=== PATIENT | male | born 1980 | race Caucasian/White ===

== ENCOUNTER 2016-12-23 21:23 | Emergency (ER) | payer OTHER ==
[2016-12-23 21:55] LABS: BASOPHILS # (AUTO) 0.1 10^3/uL (0.0-0.1); BASOPHILS % (AUTO) 0.7 %; EOSINOPHILS # (AUTO) 0.2 10^3/uL (0.0-0.7); EOSINOPHILS % (AUTO) 1.8 %; HCT - HEMATOCRIT 47.3 % (42.0-52.0); HGB - HEMOGLOBIN 16.4 g/dL (14.0-18.0); LYMPHOCYTES # (AUTO) 2.2 10^3/uL (1.5-3.5); LYMPHOCYTES % (AUTO) 17.3 %; MEAN CORPUSCULAR HEMOGLOBIN 31.3 pg (27.0-31.0); MEAN CORPUSCULAR HGB CONC 34.7 g/dL (32.0-36.0); MEAN CORPUSCULAR VOLUME 90.2 fL (80.0-94.0); MEAN PLATELET VOLUME 7.6 fL (7.4-11.4); MONOCYTES # (AUTO) 0.8 10^3/uL (0.0-1.0); MONOCYTES % (AUTO) 6.5 %; NEUTROPHILS # (AUTO) 9.2 10^3/uL (1.5-6.6); NEUTROPHILS % (AUTO) 73.7 %; RED BLOOD COUNT 5.25 10^6/uL (4.70-6.10); RED CELL DISTRIBUTION WIDTH 12.8 % (12.0-15.0); UNCORRECTED WHITE BLOOD COUNT 12.5 x10^3/uL; WHITE BLOOD COUNT 12.5 x10^3/uL (4.8-10.8)
[2016-12-23 22:03] LABS: ALBUMIN/GLOBULIN RATIO 1.1 (1.0-2.2); BILIRUBIN,TOTAL 0.5 mg/dL (0.2-1.0); CALCIUM 9.5 mg/dL (8.5-10.3); CREATININE 1.2 mg/dL (0.6-1.2); TOTAL PROTEIN 8.3 g/dL (6.7-8.2)
--- NOTE | 2016-12-23 22:19 | ED Physician Documentation ---
PD HPI ABD PAIN - Stated complaint Stated Complaint: ABD PAIN - Chief complaint Chief Complaint: Abd Pain - History obtained from History obtained from: Patient - History of Present Illness Timing - onset: Today (this morning) Timing - details: Gradual onset, Constant, Waxing and waning Pain level now: 8 Quality: Pain Location: LLQ, Other (testicles) Improved by: Other (no ameliorating factors) Worsened by: Other (no exacerbating factors) Associated symptoms: No: Fever, Nausea, Vomiting Similar symptoms before: Has not had sx before Recently seen: Not recently seen - Additional information Additional information: groin/testicular pain since this morning without injury, became worse around 2: 30 PM in abdomen, LLQ Review of Systems Constitutional: reports: Reviewed and negative GI: reports: Abdominal Pain. denies: Nausea, Vomiting : reports: Testicular pain (earlier today but nearly resoved at time of presentation). denies: Dysuria, Frequency PD PAST MEDICAL HISTORY - Past Medical History Past Medical History: Yes Cardiovascular: Hypertension Psych: ADD/ADHD - Past Surgical History Past Surgical History: Yes - Present Medications Home Medications: Ambulatory Orders Medication Instructions Recorded Confirmed Dextroamphetamine/Amphetamine 20 mg PO DAILY 12/23/16 12/23/16 [Adderall 20 mg Tablet] Lisinopril [Zestril] 20 mg PO DAILY 12/23/16 12/23/16 oxyCODONE/ACET 5/325 [Percocet 5 1 - 2 each PO Q6H PRN #20 tablet 12/24/16 mg/325 mg] - Allergies Allergies/Adverse Reactions: Allergies Allergy/AdvReac Type Severity Reaction Status Date / Time NSAIDS (Non-Steroidal Allergy Anaphylaxis Verified 12/23/16 21:30 Anti-Inflamma - Social History Does the pt smoke?: Yes Smoking Status: Current every day smoker Does the pt drink ETOH?: No Does the pt have substance abuse?: No - Immunizations Immunizations are current?: Yes PD ED PE NORMAL - Vitals Vital signs reviewed: Yes - General General: Alert and oriented X 3, No acute distress, Well developed/nourished - Cardiac Cardiac: RRR, No murmur - Respiratory Respiratory: No respiratory distress, Clear bilaterally - Abdomen Abdomen: Normal bowel sounds, Soft, Non distended PD ED PE EXPANDED - Abdomen Abdomen: Tender to palpation, LLQ. No: Rebound Results - Vitals Vitals: Oxygen O2 Source Room air - Labs Labs: Laboratory Tests 12/23/16 12/23/16 12/23/16 21:43 21:43 22:15 WBC 12.5 H RBC 5.25 Hgb 16.4 Hct 47.3 MCV 90.2 MCH 31.3 H MCHC 34.7 RDW 12.8 Plt Count 235 MPV 7.6 Neut # 9.2 H Lymph # 2.2 [place] # 0.8 Eos # 0.2 Baso # 0.1 Absolute Nucleated RBC 0.00 Nucleated RBC % 0.0 Sodium 134 L Potassium 4.0 Chloride 100 L Carbon Dioxide 23 Anion Gap 11.0 BUN 19 Creatinine 1.2 Estimated GFR (MDRD) 69 L Glucose 110 H Calcium 9.5 Total Bilirubin 0.5 AST 26 ALT 43 Alkaline Phosphatase 75 Total Protein 8.3 H Albumin 4.3 Globulin 4.0 Albumin/Globulin Ratio 1.1 Lipase 31 Urine Color YELLOW Urine Clarity CLEAR Urine pH 6.0 Ur Specific [place] 1.020 Urine Protein NEGATIVE Urine Glucose (UA) NEGATIVE Urine Ketones NEGATIVE Urine Occult Blood NEGATIVE Urine Nitrite NEGATIVE Urine Bilirubin NEGATIVE Urine Urobilinogen 0.2 (NORMAL) Ur Leukocyte Esterase NEGATIVE Ur Microscopic Review NOT INDICATED Urine Culture Comments NOT INDICATED - Rads (name of study) CT A/P Radiology: Prelim report reviewed, See rad report PD MEDICAL DECISION MAKING - ED course Complexity details: reviewed results, re-evaluated patient, considered differential, d/w patient Departure - Departure Disposition: 01 Home, Self Care Clinical Impression: Epiploic appendagitis Condition: Good Instructions: ED Abdominal Pain Unkn Cause Male Follow-Up: [facility] [Provider Group] Prescriptions: oxyCODONE/ACET 5/325 [Percocet 5 mg/325 mg] 1 - 2 each PO Q6H PRN #20 tablet PRN Reason: Pain Comments: The CT scan of your abdomen suggests the diagnosis of epiploic appendagitis. Unfortunately, I do not have discharge instructions that review this diagnosis ( and thus you have been given general abdominal pain instructions that indicate no specific cause). As we discussed, epiploic appendagitis is painful but benign , and should resolve within one week. Please follow up with your doctor for reevaluation this coming week. Discharge Date/Time: 12/24/16 03:02
[2016-12-23 22:27] LABS: BILIRUBIN,URINE NEGATIVE (NEGATIVE)
[2016-12-23 22:31] LABS: UA CHARGE (STRIP ONLY) YES; UR CULTURE IF IND NOT INDICATED
[2016-12-23] MEDS ORDERED: IOPAMIDOL-300 100 ML VIAL ONE (23:10)
[2016-12-23] MEDS ORDERED: HYDROmorphone 1 MG/ML CARPUJECT IVP STA (23:11)
[2016-12-23] MEDS ORDERED: HYDROmorphone 1 MG/ML SYRINGE ONE (23:15)
[2016-12-24] MEDS ORDERED: IOPAMIDOL-300 100 ML VIAL IVP ONE (00:03)
--- NOTE | 2016-12-24 00:25 | CT Preliminary Report ---
Exam: CT Abdomen/Pelvis W/ IMPRESSION: 1. Distal descending colon epiploic appendagitis. 2. Couple of tiny nonobstructing left renal stones. [facility] SITE ID: [id number]
--- NOTE | 2016-12-24 00:38 | CT Report ---
EXAM: CT ABDOMEN AND PELVIS EXAM DATE: 12/24/2016 12:14 AM. CLINICAL HISTORY: Left lower quadrant abdominal pain. COMPARISONS: None. TECHNIQUE: Routine helical CT imaging was performed through the abdomen and pelvis. IV contrast: 100 mL Isovue 300. Enteric contrast: No . Reconstructions: Coronal and sagittal. In accordance with CT protocol optimization, one or more of the following dose reduction techniques w ere utilized for this exam: automated exposure control, adjustment of mA and/or KV based on patient s ize, or use of iterative reconstructive technique. FINDINGS: Lung Bases: Unremarkable. Liver: Unremarkable. No suspicious masses. Gallbladder/Bile Ducts: Unremarkable. Spleen: Unremarkable. Pancreas: Unremarkable. Adrenal Glands: Unremarkable. Kidneys: A couple of tiny nonobstructing left renal stones. No suspicious masses or hydronephrosis. Peritoneal Cavity/Bowel: Inflammatory fat stranding anterior to the distal descending colon in a karolina reynaldo consistent with epiploic appendagitis. No bowel obstruction or other inflammatory process seen. N o free air or significant free fluid. No masses or adenopathy. The appendix is normal. No excessive s tool burden. Pelvic Organs: Bladder and prostate appear unremarkable. Vasculature: No aneurysms or other significant abnormality. Bones: No significant abnormality with incidental note of partial fusion of T10-T11. Other: None. IMPRESSION: 1. Distal descending colon epiploic appendagitis. 2. A couple of tiny nonobstructing left renal stones. [facility] Referring Provider Line: [phone] SITE ID: [id number]
[2016-12-24] MEDS ORDERED: HYDROmorphone 1 MG/ML CARPUJECT IVP STA (02:36)
[2016-12-24] MEDS ORDERED: oxyCODONE/ACET 5/325 Prepack 4 PO STA (02:36)
[2016-12-24] MEDS ORDERED: HYDROmorphone 1 MG/ML SYRINGE ONE (02:47)
[2016-12-24] MEDS ORDERED: oxyCODONE/ACET 5/325 Prepack 4 PO ONE (02:47)
[2016-12-24 03:03] VITALS: BP 118/74
== END 2016-12-24 03:02 | disposition home or self-care (01) ==
LOC: ED 21:23
DX: K63.89 Other specified diseases of intestine (principal); I10 Essential (primary) hypertension; F17.200 Nicotine dependence, unspecified, uncomplicated
CPT/HCPCS: 36415; 74177; 80053; 81003; 83690; 85025; 96374; 96376; 99283; 99284; J1170; Q9967; 81001; 87086

== ENCOUNTER 2017-02-05 22:14 | Emergency (ER) | payer OTHER ==
[2017-02-05] MEDS ORDERED: oxyCODONE/ACET 5/325 Prepack 4 PO STA (22:33)
[2017-02-05] MEDS ORDERED: cefTRIAXone 1 GM VIAL IM STA (22:33)
[2017-02-05] MEDS ORDERED: HYDROmorphone 1 MG/ML SYRINGE IM STA (22:33)
[2017-02-05] MEDS ORDERED: NEOMYCIN/POLYMYX/HC OTIC DROPS LEFTEAR STA (22:33)
--- NOTE | 2017-02-05 22:34 | ED Physician Documentation ---
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 He developed ear pain about 4 days ago[place]. He got worse over the weekend and was seen again yesterday now with pain radiating down the jaw and mild facial swelling and chills. He was started on oral ciprofloxacin and tramadol which have not helped the pain and the swelling has continued to worsen.) Review of Systems Constitutional: reports: Fever, Chills Ears: reports: Loss of hearing, Ear pain, Drainage/discharge Nose: denies: Rhinorrhea / runny nose, Congestion Throat: reports: Reviewed and negative PD PAST MEDICAL HISTORY - Past Medical History Cardiovascular: Hypertension Psych: ADD/ADHD - Past Surgical History Past Surgical History: Yes - Present Medications Home Medications: Ambulatory Orders Medication Instructions Recorded Confirmed Dextroamphetamine/Amphetamine 20 mg PO DAILY 12/23/16 02/05/17 [Adderall 20 mg Tablet] Lisinopril [Zestril] 20 mg PO DAILY 12/23/16 02/05/17 Amox/Clav 875/125 [Augmentin 1 tab PO 02/05/17 875/125] Ciprofloxacin HCl [Cipro] 1 tab PO 02/05/17 Oxycodone HCl/Acetaminophen 1 - 2 tab PO Q4H PRN #15 tablet 02/05/17 [Percocet 5-325 mg Tablet] Tramadol HCl 1 tab PO Q6HR PRN 02/05/17 02/05/17 - Allergies Allergies/Adverse Reactions: Allergies Allergy/AdvReac Type Severity Reaction Status Date / Time NSAIDS (Non-Steroidal Allergy Anaphylaxis Verified 02/05/17 22:18 Anti-Inflamma - Social History Does the pt smoke?: Yes Smoking Status: Current every day smoker Does the pt drink ETOH?: No Does the pt have substance abuse?: No - Immunizations Immunizations are current?: Yes - POLST Patient has POLST: No PD ED PE NORMAL - Vitals Vital signs reviewed: Yes - General General: Alert and oriented X 3, No acute distress - HEENT HEENT: Other (He has very mild left-sided facial cellulitis, the left canal is swollen shots, a Paulson ear wick was placed during examination, he has severe otitis externa. He has a large but noninflamed tonsils. No cervical adenopathy.) - Neck Neck: Supple, no meningeal sign, No bony TTP - Neuro Neuro: Alert and oriented X 3, Normal speech - Psych Psych: Normal mood, Normal affect Results - Vitals Vitals: Vital Signs - 24 hr 02/05/17 22:18 Temperature 36.2 C L Heart Rate 99 Respiratory 18 Rate Blood Pressure 150/103 H O2 Saturation 96 Oxygen O2 Source Room air PD MEDICAL DECISION MAKING - ED course ED course: 37-year-old gentleman with otitis externa and now reactive facial cellulitis. He is probably not getting much relief from his eardrops because his canal is completely swollen shut. To remedy this an ear wick was placed during examination. He was also administered a gram of Rocephin here and Percocet prepack to go as well as milligram of Dilaudid IM here. Departure - Departure Disposition: 01 Home, Self Care Clinical Impression: Acute otitis externa, Facial cellulitis Condition: Good Record reviewed to determine appropriate education?: Yes Instructions: ED Cellulitis Facial Prescriptions: Oxycodone HCl/Acetaminophen [Percocet 5-325 mg Tablet] 1 - 2 tab PO Q4H PRN #15 tablet PRN Reason: Pain Comments: Continue the oral antibiotics and eardrops which you have been prescribed. Add on the stronger pain medication. Return tomorrow or the next day if not improving, anytime if worse. Your blood pressure was elevated today on check into the emergency department. This does not mean that you have hypertension, it is a common phenomenon to come to the emergency department and have elevated blood pressure. I recommend that you see your primary care physician within the week to have it rechecked when you are feeling better. Do not drink or drive while taking narcotic pain medication. Note that many narcotic pain relievers also contain Tylenol/acetaminophen. Please ensure that your total dose of acetaminophen from all sources does not exceed 3 g (3000 mg) per day. You may get constipated while on this medication. Take a stool softener such as Colace twice a day while you are on it. Also add an [id number] laxative such as senna or MiraLAX on any day that you do not have a bowel movement. If you received a narcotic pain medication or sedative while in the emergency department, do not drive for the next 24 hours.
[2017-02-05] MEDS ORDERED: HYDROmorphone 1 MG/ML SYRINGE ONE (22:42)
[2017-02-05] MEDS ORDERED: oxyCODONE/ACET 5/325 Prepack 4 PO ONE (22:43)
[2017-02-05] MEDS ORDERED: LIDOCAINE 1% 2 ML VIAL ONE (22:43)
[2017-02-05] MEDS ORDERED: NEOMYCIN/POLYMYX/HC OTIC DROPS ONE (22:43)
[2017-02-05] MEDS ORDERED: cefTRIAXone 1 GM VIAL ONE (22:43)
[2017-02-05 23:06] VITALS: BP 140/90
== END 2017-02-05 23:13 | disposition home or self-care (01) ==
LOC: ED 22:14
DX: H60.502 Unspecified acute noninfective otitis externa, left ear (principal); L03.211 Cellulitis of face; I10 Essential (primary) hypertension; F17.200 Nicotine dependence, unspecified, uncomplicated
CPT/HCPCS: 96372; 99283; A9270; J1170

== ENCOUNTER 2017-07-06 16:58 | Emergency (ER) | payer OTHER ==
[2017-07-06 17:08] VITALS: BP 140/86
--- NOTE | 2017-07-06 17:30 | ED Physician Documentation ---
PD HPI UPPER EXT INJURY - Stated complaint Stated Complaint: FINGER LAC - Chief complaint Chief Complaint: Laceration - History obtained from History obtained from: Patient, Family - History of Present Illness Location: Left, Finger (index) Type of injury: Laceration Where injury occurred: Home Timing - onset: Today Timing - duration: Minutes Timing - details: Abrupt onset, Still present Improved by: Rest, Immobilization Worsened by: Moving, Palpating Associated symptoms: No: Weakness, Numbness, Tingling Contributing factors: No: Anticoagulated Similar symptoms before: Diagnosis (laceration) Recently seen: Not recently seen - Additonal information Additional information: 37-year-old male was cutting cheese with a sharp knife and lacerated his left index finger over the proximal interphalangeal joint with a skip of skin. It is over the radial surface. Distal neurovascular components are intact. Review of Systems Constitutional: denies: Fever Respiratory: denies: Cough GI: denies: Vomiting Skin: reports: Laceration (s) Musculoskeletal: reports: Extremity pain. denies: Neck pain, Back pain PD PAST MEDICAL HISTORY - Past Medical History Past Medical History: Yes Cardiovascular: Hypertension Psych: ADD/ADHD - Past Surgical History Past Surgical History: Yes - Present Medications Home Medications: Ambulatory Orders Medication Instructions Recorded Confirmed Dextroamphetamine/Amphetamine 20 mg PO DAILY 12/23/16 02/05/17 [Adderall 20 mg Tablet] Lisinopril [Zestril] 20 mg PO DAILY 12/23/16 02/05/17 - Allergies Allergies/Adverse Reactions: Allergies Allergy/AdvReac Type Severity Reaction Status Date / Time NSAIDS (Non-Steroidal Allergy Anaphylaxis Verified 07/06/17 17:08 Anti-Inflamma - Social History Does the pt smoke?: Yes Smoking Status: Current every day smoker Does the pt drink ETOH?: No Does the pt have substance abuse?: No - Immunizations Immunizations are current?: Yes - POLST Patient has POLST: No PD ED PE NORMAL - Vitals Vital signs reviewed: Yes (hypertensive ) - General General: Alert and oriented X 3, No acute distress, Well developed/nourished - HEENT HEENT: Atraumatic, PERRL, EOMI - Neck Neck: Supple, no meningeal sign - Respiratory Respiratory: No respiratory distress Results - Vitals Vitals: Vital Signs - 24 hr 07/06/17 17:07 Temperature 36.6 C Heart Rate 85 Respiratory 16 Rate Blood Pressure 140/86 H O2 Saturation 97 Oxygen O2 Source Room air PD MEDICAL DECISION MAKING - ED course Complexity details: considered differential, d/w patient, d/w family ED course: skin is avulsed and this is treated conservatively. Departure - Departure Disposition: 01 Home, Self Care Clinical Impression: Skin avulsion Condition: Stable Instructions: ED Avulsion Dermal Follow-Up: [facility] [Provider Group] Discharge Date/Time: 07/06/17 17:49
== END 2017-07-06 17:49 | disposition home or self-care (01) ==
LOC: ED 16:58
DX: S61.201A Unspecified open wound of left index finger without damage to nail, initial encounter (principal); W26.0XXA Contact with knife, initial encounter; Y92.009 Unspecified place in unspecified non-institutional (private) residence as the place of occurrence of the external cause; I10 Essential (primary) hypertension; F17.200 Nicotine dependence, unspecified, uncomplicated
CPT/HCPCS: 99282; 99283

== ENCOUNTER 2022-10-10 13:02 | Outpatient (CLI) | payer OTHER ==
--- NOTE | 2022-10-10 13:40 | Sleep Patient Instructions ---
Sleep Center Visit Summary - Patient Visit Information Reason for Visit: Initial consult for evaluation of sleep disordered breathing and other sleep issues. - Patient Instructions Instructions Attached: Sleep Study, Sleep Clinic Visit, Sleep Study Home Monitor Additional Instructions: You will be completing a sleep study, either an in-lab polysomnography (PSG) or home sleep study (HST). You will follow-up in the sleep care office after the sleep study is completed to hear the results and talk about therapy, if needed. You will be called by our office staff to schedule this appointment, but you may contact us with any questions. - Clinic Information Contact: [facility] [address] [place] [address] [email or web address] T: [phone]
--- NOTE | 2022-10-10 13:46 | SLEEP CARE CONSULTATION ---
Information from patient questionnaire entered by Margarita Kaplan. I have reviewed and concur with the information entered by Margarita Kaplan. This document represents the service I personally performed and the decisions made by me, Sruthi Brown ARNP. History of Present Illness Service Date and Time: 10/10/2022 1302 Reason for Visit: New patient Chief Complaint: reports: Snoring, Excessive daytime sleepiness, Observed pauses in breathing Date of Onset: COUPLE YRS Usual bedtime: 2200 Time it takes to fall asleep: 20MIN Snores at night: Yes Observed to quit breathing while asleep: Yes Number of times waking at night: 3-5 Reasons for waking at night: reports: Snoring, Pain (neck/shoulder pain), Other (UNKNOWN, TOSSING AND TURNING). denies: Choking, Gasping for air Toss, Turn, or Twitch while sleeping: Yes Recalls having dreams: Yes Usually gets out of bed at: 0500 Feels refreshed in the morning: No Morning headache: No Sleepy or fatigued during the day: Yes Ever fallen asleep while driving: No Takes day naps: No Dreams during day naps: No Prior sleep studies: No Additional HPI information: I had the pleasure of seeing PRISCILLA FAULKNER today regarding the possibility of him having a sleep disorder. His current complaints are snoring, excessive daytime sleepiness and observed pauses in breathing. He states he comes in because his has encouraged him to have his snoring checked out. His snoring has been getting worse and he is stopping breathing which "scares" his . He states he is also becoming progressively more tired during the day. He does not wake up feeling refreshed in the morning. He does have hypertension which he states has been hard to control with medications. - Parasomnia Symptoms Ever been unable to move upon waking from sleep: No Walks in sleep: No Talks in sleep: Yes (having conversations sometimes) Ever acted out dreams in sleep: Yes (moving hands in sleep) Ever felt weak in the knees when startled or emotional: No Bothered by creepy, crawly, restless sensations in legs: No Problems with memory or concentration: Yes (concentration problem, on ADHD medications for this) Subjective Initial [place] Sleepiness Scale score: 15 (10/09/22) Past Medical History Past Medical History: reports: Hypertension, Attention deficit Social History The patient's occupation is a [employer]. Patient is and lives in . Have you smoked in the past 12 months: No Years of smokin Quit date: 2013 Alcohol use: Yes Alcohol amount and frequency: 2 DRINKS RARELY Caffeine use: Yes Caffeine amount and frequency: 2 CUPS EVERYDAY Family History Family history of sleep disordered breathing: Yes Family Hx Sleep Apnea: Mother: Snoring, Father: Snoring, Sibling: Snoring Allergies and Home Medications Known drug allergies: Yes (NASAIDS) Drug allergies reviewed: Yes Home medication list reviewed: Yes (Adderall and Lisinopril) Allergy and home medication list: Allergies NSAIDS (Non-Steroidal Anti-Inflamma Allergy (Verified 10/09/22 13:48) Anaphylaxis Review of Systems Weight gain over past 5 years: 20 Cardiovascular: reports: high blood pressure Respiratory: reports: shortness of breath Gastrointestinal: reports: diarrhea. denies: heartburn Neurological: denies: headaches Psychiatric: reports: Attention Deficit Hyperactivity. denies: anxiety, depression Ear/Nose/Throat: reports: wisdom teeth removed. denies: tonsillectomy Musculoskeletal: reports: joint pain, neck pain, other (SHOULDER PAIN) Physical Exam Vital signs obtained and entered by: MARGARITA Siddiqi MA Blood Pressure: 128/78 (LEFT ARM) Cuff size: regular Heart Rate: 91 O2 Saturation: 96 Height: 5 ft 10.5 in Weight: 239 lb 9.6 oz Body Mass Index: 33.9 BMI Classification: Obese Neck circumference: 19 Mouth and throat: narrow oropharynx Soft palate: long Hard palate: normal Uvula: normal Uvula visualization: 25% Mallampati Class III Tongue: normal in size Tonsils: 2+ Neck: normal w/o lymphadenopathy or thyromegaly Heart: regular rate and rhythm Lungs: clear bilaterally Impression and Plan 1. Suspected Obstructive Sleep Apnea-Hypopnea Syndrome, as suggested by a history of loud and irregular snoring, observed cessation of breath while asleep, frequent awakening during the night, unrefreshed sleep, cognitive impairment, and excessive daytime sleepiness. Narrow oropharynx and obesity are common predisposing factors for obstructive sleep apnea-hypopnea syndrome. I recommend proceeding to polysomnography to confirm the diagnosis and to assess severity. If the patient has significant sleep disordered breathing, a manual CPAP titration study will also be performed to find the optimal treatment pressure. I informed the patient of what the sleep studies involve and after some discussion, obtained agreement to proceed. The pathophysiology of obstructive sleep apnea-hypopnea syndrome was discussed with the patient and health risks of cardiovascular and cerebrovascular disease if not treated. Risks of drowsy driving discussed in detail and patient advised to avoid long distance driving and to pin puller at the first sign of drowsiness. Patient agreed to plan. * Schedule polysomnography * Avoid long distance driving or driving when feeling sleepy. * Avoid alcohol, sedative and muscle relaxant around bedtime. * Attempt to lose weight. * Review instructions provided by trained office staff on how to prepare for the sleep study. * Return for follow-up after sleep study completed. Counseling Topics: Weight loss health impact Visit Type: In Office Time Spent with Patient (minutes): 30 Provider Statement: I spent 100% of the Face to Face Visit with the patient with greater than 50% spent counseling the patient and coordination of care.
[2022-10-10 14:07] VITALS: BP 128/78
== END 2022-10-10 13:03 | disposition home or self-care (01) ==
LOC: SC 13:02
PROVIDERS: ATTEND Nurse Practitioner Family
DX: R06.83 Snoring (principal); G47.10 Hypersomnia, unspecified; R06.81 Apnea, not elsewhere classified; G47.8 Other sleep disorders; R41.89 Other symptoms and signs involving cognitive functions and awareness; E66.9 Obesity, unspecified; Z68.33 Body mass index [BMI] 33.0-33.9, adult; Z87.891 Personal history of nicotine dependence
CPT/HCPCS: 99203; 99212

== ENCOUNTER 2022-11-13 20:34 | Outpatient (CLI) | payer OTHER | END 2022-11-13 20:35 | disposition home or self-care (01) | LOC: SC 20:34 | PROVIDERS: ATTEND Nurse Practitioner Family | DX: G47.33 Obstructive sleep apnea (adult) (pediatric) (principal); G47.61 Periodic limb movement disorder; Z68.33 Body mass index [BMI] 33.0-33.9, adult | CPT/HCPCS: 95806; 95810 ==

== ENCOUNTER 2022-11-30 08:42 | Outpatient (CLI) | payer OTHER ==
--- NOTE | 2022-11-30 09:08 | Sleep Patient Instructions ---
Sleep Center Visit Summary - Patient Visit Information Reason for Visit: Follow up sleep study - Patient Instructions Instructions Attached: CPAP Dc, CPAP Additional Instructions: You are being started on CPAP therapy with pressure setting at 4-15 cmH2O. You will need to call the sleep care office to set up your follow up once you have your APAP machine and we will schedule a visit to check compliance and response to therapy at that time. You may call the office with any concerns about pressure feeling too low or too much for adjustment, if needed. You should contact DME supplier for any questions or concerns about mask or equipment. Please call office to schedule a follow up appointment in the sleep care office one month after obtaining new device. - Clinic Information Contact: [facility] [address] [place] [address] [email or web address] T: [phone]
--- NOTE | 2022-11-30 09:12 | SLEEP CARE CONSULTATION ---
Information from patient questionnaire entered by Margarita Kaplan. I have reviewed and concur with the information entered by Margarita Kaplan. This document represents the service I personally performed and the decisions made by me, Sruthi Brown ARNP. History of Present Illness Service Date and Time: 11/30/2022 0842 Initial [place] Sleepiness Scale score: 15 (10/09/22) Current [place] Sleepiness Scale score: 15 (11/30/22) Additional HPI information: PRISCILLA FAULKNER returns for follow up and results of the recently performed polysomnography. His sleep study showed mild obstructive sleep apnea with an average AHI of 9.1 and hiram oxygen saturation of 94%. He also had moderate periodic leg movements of sleep that did not contribute to sleep fragmentation. I explained the pathophysiology behind obstructive sleep apnea. We then spent quite a bit of time discussing different treatment options. For mild obstructive sleep apnea, surgery and oral appliance are alternatives to nasal CPAP therapy but in moderate or severe cases, nasal CPAP is the most effective and reliable treatment. Because apnea is primarily in supine position, then positional management therapy could be effective. Methods discussed such as positioning with pillows, using a T-shirt with tennis balls in the back or commercial products that have a pillow format on back to prevent supine sleep. I reviewed the impact of weight changes on sleep apnea and strongly recommended losing weight. After some discussion, the patient opted to go with the nasal CPAP therapy. Nasal autoCPAP set at 4-15 cmH20 will be ordered with rationale explained. A manual titration study will be ordered if unable to find optimal pressure with office adjustments. I explained how CPAP machine works and what to expect when using the machine. Using CPAP every night in order to get used to it was emphasized. Patient advised to put CPAP mask on before getting into bed so as not to fall asleep without CPAP. To assist acclimation to CPAP use, it could also be used for a short time during day while reading or watching TV. The patient was instructed to call the CPAP supplier to discuss any mechanical problem that may occur. If the mask given is uncomfortable or is difficult to keep on through the night even with adjustment, contact the CPAP supplier as many will replace with another mask style if notified before 30 days. If snoring or perceives is not getting enough air or too much air from the machine, notify this office. Patient counseled not drink alcohol less than 4 hours before bedtime as it can increase snoring and apnea. Patient was cautioned about risks of drowsy driving until sleepiness symptoms resolve. Patient denies drowsy driving. Sleep Study - Results Type of Sleep Study: Polysomnography (COMPLETED 11/13/22) Prior sleep studies: No Polysomnography/Home Sleep Study results: IMPRESSION: The quality of the study is good. The patient had normal sleep efficiency. The sleep architecture was abnormal for sleep fragmentation and lack of slow wave sleep (N3). Resp iratory monitoring showed mild obstructive sleep apnea-hypopnea (AHI = 9.1) associated with frequent arousals, oxyhemoglobin desaturation and mild hypoxia (hiram oxygen saturation of 88%). The respiratory events occurred almost exclusively during supine sleep (supine AHI = 25.3; non-supine = 0.90). Snore was loud in intensity. There was moderate periodic leg movement of sleep not contributing to the sleep fragmentation. Cardiac rhythm was normal sinus rhythm without significant arrhythmia. No abnormal behavior (parasomnia) observed during the night. Allergies and Home Medications Known drug allergies: Yes (as listed) Drug allergies reviewed: Yes Home medication list reviewed: Yes (no changes) Allergy and home medication list: Allergies NSAIDS (Non-Steroidal Anti-Inflamma Allergy (Verified 11/29/22 08:40) Anaphylaxis Review of Systems Review of systems same as previous: No (3x hernia repair one month ago) Physical Exam Vital signs obtained and entered by: MARGARITA Siddiqi MA Blood Pressure: 142/90 (LEFT ARM) Cuff size: regular Heart Rate: 98 O2 Saturation: 98 Height: 5 ft 10.5 in Weight: 238 lb 9.6 oz Body Mass Index: 33.7 BMI Classification: Obese Impression and Plan 1. Obstructive Sleep Apnea-Hypopnea Syndrome, mild, with lowest oxygen saturation of 88%. Obviously this is the cause of the patients symptoms of unrefreshed sleep, and excessive daytime sleepiness. Positive pressure therapy could benefit hypertension and attention deficit. As mentioned above, the patient will be started on nasal autoCPAP therapy with pressure set at 4-15 cmH2 O. A manual titration study will be completed if unable to find optimal treatment pressure with office adjustments. Compliance guidelines also reviewed. A copy of compliance guidelines will be given for reference at check out. Because the apnea is more severe supine, I instructed to avoid sleeping supine using pillow positioning until able to start CPAP use. 2. Periodic limb movement, moderate, that did not fragment patients sleep. Periodic limb movement of sleep (PLMS) is characterized by episodes of repetitive limb movements that occur during sleep and usually involve the lower limbs. The etiology is unknown. Caffeine can aggravate PLMS and should be avoided. Sleep hygiene methods can also improve sleep as well as lifestyle changes such as regular exercise. Patient was advised that no treatment is needed at this time. If symptoms increase, then further evaluation is indicated. * Nasal auto CPAP therapy, pressure at 4-15 cm H2O. * Attempt to lose weight. * Avoid alcohol consumption near bedtime. * Avoid supine sleep until using CPAP. * The patient is again cautioned about driving until sleepiness completely resolves. * Return one month after CPAP obtained. I will assess response to therapy and compliance at that time. Counseling Topics: Sleeping position, Weight loss health impact Visit Type: In Office Time Spent with Patient (minutes): 20 Provider Statement: I spent 100% of the Face to Face Visit with the patient with greater than 50% spent counseling the patient and coordination of care.
[2022-11-30 09:20] VITALS: BP 142/90; O2SAT 98
== END 2022-11-30 08:43 | disposition home or self-care (01) ==
LOC: SC 08:42
PROVIDERS: ATTEND Nurse Practitioner Family
DX: G47.33 Obstructive sleep apnea (adult) (pediatric) (principal); G47.61 Periodic limb movement disorder; E66.9 Obesity, unspecified; Z68.33 Body mass index [BMI] 33.0-33.9, adult
CPT/HCPCS: 99212; 99213

== ENCOUNTER 2023-06-11 09:48 | Outpatient (CLI) | payer OTHER ==
--- NOTE | 2023-06-11 10:07 | Sleep Patient Instructions ---
Sleep Center Visit Summary - Patient Visit Information Reason for Visit: First compliance follow-up - Patient Instructions Additional Instructions: You were here for follow up of CPAP therapy. You will be continued on CPAP therapy with pressure at 8-12 cmH2O. Please let us know if the pressure change is uncomfortable and we can make further adjustments of the pressure. You should follow up with sleep care in 1-2 months. You may contact us sooner for any questions or concerns. - Clinic Information Contact: [facility] [address] [place] [address] [email or web address] T: [phone]
--- NOTE | 2023-06-11 10:09 | SLEEP CARE CONSULTATION ---
Information from patient questionnaire entered by Margarita Kaplan. I have reviewed and concur with the information entered by Margarita Kaplan. This document represents the service I personally performed and the decisions made by , Sruthi Brown ARNP. History of Present Illness Service Date and Time: 06/11/2023 09 Previous diagnosis: Mild, Obstructive Sleep Apnea-Hypopnea Syndrome AHI: 9.1 (11-13-22) Reason for follow up: first compliance Equipment type: CPAP (RESMED AIRSENSE 10 AUTO SET SETUP DATE 04/09/23) Equipment obtained from: Other ([facility]; getting supplies) Mask style: Nasal Mask brand: Respironics ([place], Large cushion) Backup mask available: No Last cushion change: 2 months Prior sleep studies: No Type of Sleep Study: Polysomnography (COMPLETED 11/13/22) HPI additional information: PRISCILLA FAULKNER was diagnosed to have mild, AHI 9.1, obstructive sleep apnea- hypopnea syndrome and returned today for CPAP therapy first compliance follow- up. Sleep Study - Results Type of Sleep Study: Polysomnography (COMPLETED 11/13/22) Prior sleep studies: No CPAP Compliance Data - Data Reviewed with Patient Average duration of nightly device use: 4 HRS 53 MINS Compliance rate %: 70 (04/13/23-05/12/23; days used) Current pressure setting (cmH2O): 4-15 (median 8, avg 11, max 12.3) Average residual AHI: 0.4 Central apnea: 0 Obstructive apnea: 0.1 Hypopnea: 0.2 Average large leak: 2.5 L/min Subjective Missed days of use due to: reports: illness (Bronchitis) Patient concerns: denies: aerophagia, mask discomfort, air blowing in eyes, mask leak noise, condensation in mask/hose, nasal congestion, dry mouth, nose, throat, epistaxis Observed to snore while using device: No Current pressure setting perceived as: comfortable On therapy, patient: reports: sleeping better, awakening more refreshed, being more awake and alert during the day, more rested overall. denies: drowsiness while driving Initial [place] Sleepiness Scale score: 15 (10/09/22) Current [place] Sleepiness Scale score: 6 Allergies and Home Medications Known drug allergies: Yes (as listed) Drug allergies reviewed: Yes Home medication list reviewed: Yes (no changes) Allergy and home medication list: Allergies NSAIDS (Non-Steroidal Anti-Inflamma Allergy (Verified 06/10/23 11:15) Anaphylaxis Review of Systems Review of systems same as previous: Yes (no changes) Physical Exam Vital signs obtained and entered by: Sruthi Villafana NP Blood Pressure: 157/98 (stress this morning at work) Cuff size: regular (left arm) Heart Rate: 85 O2 Saturation: 99 Height: 5 ft 10.5 in Weight: 242 lb (boots/clothes on) Weight change since last visit: 4 lb gain Body Mass Index: 34.2 BMI Classification: Obese Impression and Plan 1. Obstructive Sleep Apnea-Hypopnea Syndrome, mild, with good treatment compliance and good apnea control. On CPAP therapy, the patient has better sleep quality and is more rested overall. Patient has significant improvement of their sleep apnea and is satisfied with current CPAP therapy. Patient states his [facility] provider has noticed a decrease in his baseline blood pressure however it was slightly elevated today. He states he has been having "quite a day "at work already today. He will follow-up with his primary as needed. The patients pressure will be changed to autoCPAP 8-12 cmH20 to reflect pressure being used. Patient advised to contact me if pressure change is uncomfortable so that it can be adjusted. Goals for apnea control discussed. Patient's apnea severity and rationale for treatment to reduce apnea, improve sleep quality and reduce cardiovascular and cerebrovascular events was reviewed. I also reviewed the benefit of consistent device use of CPAP for hypertension and attention deficit. 2. Obesity, unspecified. Currently patients BMI is 34.2. Obesity increases the risk of apnea, CPAP pressure requirements and overall health risks especially cardiovascular and diabetes. Thus patient is advised to continue to try to lose weight. * Change auto CPAP pressure to 8-12 cmH2O * Notify me if snoring with mask or feeling that the pressure is too much or too little * Attempt to lose weight * Call this office if any problems using CPAP * Return for follow up in 1-2 months, or sooner if concerns arise Adjust device pressure to (cmH2O): 8-12 Counseling Topics: Spare mask, Weight loss health impact Follow up with Sleep Care in: 1-2 months Visit Type: In Office Time Spent with Patient (minutes): 20 Provider Statement: I spent 100% of the Face to Face Visit with the patient with greater than 50% spent counseling the patient and coordination of care.
[2023-06-11 10:19] VITALS: BP 157/98; O2SAT 99
== END 2023-06-11 09:49 | disposition home or self-care (01) ==
LOC: SC 09:48
PROVIDERS: ATTEND Nurse Practitioner Family
DX: G47.33 Obstructive sleep apnea (adult) (pediatric) (principal); E66.9 Obesity, unspecified; Z68.34 Body mass index [BMI] 34.0-34.9, adult
CPT/HCPCS: 99212; 99213

== ENCOUNTER 2023-07-16 10:01 | Outpatient (CLI) | payer OTHER ==
--- NOTE | 2023-07-16 10:17 | Sleep Patient Instructions ---
Sleep Center Visit Summary - Patient Visit Information Reason for Visit: 1 month follow-up for PAP therapy - Patient Instructions Additional Instructions: You were here for follow up of CPAP therapy. You will be continued on CPAP therapy with pressure at 8-12 cmH2O. You should follow up with sleep care in 3 months. You may contact us sooner for any questions or concerns. - Clinic Information Contact: [facility] [address] [place] [address] [email or web address] T: [phone]
--- NOTE | 2023-07-16 10:22 | SLEEP CARE CONSULTATION ---
Information from patient questionnaire entered by Margarita Kaplan. I have reviewed and concur with the information entered by Margarita Kaplan. This document represents the service I personally performed and the decisions made by , Sruthi Brown ARNP. History of Present Illness Service Date and Time: 07/16/2023 1001 Previous diagnosis: Mild, Obstructive Sleep Apnea-Hypopnea Syndrome AHI: 9.1 (11-13-22) Reason for follow up: other (1 MONTH F/U) Equipment type: CPAP (RESMED AIRSENSE 10 AUTO SET SETUP DATE 04/09/23) Equipment obtained from: Other ([facility]; getting supplies) Mask style: Nasal Mask brand: Respironics Backup mask available: No (will keep old mask when replaced) Last cushion change: alternating between 2 cushion every 4 days Prior sleep studies: No Type of Sleep Study: Polysomnography (COMPLETED 11/13/22) HPI additional information: PRISICLLA FAULKNER was diagnosed to have mild, AHI 9.1, obstructive sleep apnea- hypopnea syndrome and returned today for CPAP therapy one month follow-up. Sleep Study - Results Type of Sleep Study: Polysomnography (COMPLETED 11/13/22) Prior sleep studies: No CPAP Compliance Data - Data Reviewed with Patient Average duration of nightly device use: 5 HRS 15 MINS Compliance rate %: 80 (06/11/23-07/10/23; days used) Current pressure setting (cmH2O): 8-12 Average residual AHI: 0.2 Central apnea: 0 Obstructive apnea: 0 Hypopnea: 0.2 Subjective Patient concerns: reports: mask leak noise (needs to change cushion), condensation in mask/hose. denies: aerophagia, mask discomfort, air blowing in eyes, nasal congestion, dry mouth, nose, throat, epistaxis Observed to snore while using device: No Current pressure setting perceived as: comfortable On therapy, patient: reports: sleeping better, awakening more refreshed, being more awake and alert during the day, more rested overall. denies: drowsiness while driving Initial [place] Sleepiness Scale score: 15 (10/09/22) Current [place] Sleepiness Scale score: 4 (07/15/23) Allergies and Home Medications Known drug allergies: Yes (as listed) Drug allergies reviewed: Yes Home medication list reviewed: Yes (no changes) Allergy and home medication list: Allergies NSAIDS (Non-Steroidal Anti-Inflamma Allergy (Verified 07/11/23 14:12) Anaphylaxis Review of Systems Review of systems same as previous: Yes (NO CHANGE) Physical Exam Vital signs obtained and entered by: MARGARITA Siddiqi MA Blood Pressure: 145/98 (RIGHT ARM) Cuff size: regular Heart Rate: 81 O2 Saturation: 99 Height: 5 ft 10.5 in Weight: 241 lb 3.2 oz Body Mass Index: 34.1 BMI Classification: Obese Impression and Plan 1. Obstructive Sleep Apnea-Hypopnea Syndrome, mild, with good treatment compliance and good apnea control. On CPAP therapy, the patient has better sleep quality and is more rested overall. He states that he is not falling asleep when watching movies with his kids and they really like it. He does feel more rested and has good energy during the day. He has significant improvement of his sleep apnea and the pressure is comfortable. He says since getting back from [place] he is dealing with more condensation. We discussed ways to adjust the humidifier and heated hose to reduce the condensation. He voiced understanding. Patient's apnea severity and rationale for treatment to reduce apnea, improve sleep quality and reduce cardiovascular and cerebrovascular events was reviewed. I also reviewed the benefit of consistent device use of CPAP for hypertension, attention deficit. 2. Obesity, unspecified. Currently patients BMI is 34.1. Obesity increases the risk of apnea, CPAP pressure requirements and overall health risks especially cardiovascular and diabetes. Thus patient is advised to lose weight. * Continue auto CPAP pressure at 8-12 cmH2O * Notify me if snoring with mask or feeling that the pressure is too much or too little * Attempt to lose weight * Call this office if any problems using CPAP * Return for follow up in 3 months, or sooner if concerns arise Counseling Topics: Spare mask, Weight loss health impact Follow up with Sleep Care in: 3 months Visit Type: In Office Time Spent with Patient (minutes): 12 Provider Statement: I spent 100% of the Face to Face Visit with the patient with greater than 50% spent counseling the patient and coordination of care.
[2023-07-16 10:38] VITALS: BP 145/98; O2SAT 99
== END 2023-07-16 10:02 | disposition home or self-care (01) ==
LOC: SC 10:01
PROVIDERS: ATTEND Nurse Practitioner Family
DX: G47.33 Obstructive sleep apnea (adult) (pediatric) (principal); E66.9 Obesity, unspecified; Z68.34 Body mass index [BMI] 34.0-34.9, adult
CPT/HCPCS: 99212

== ENCOUNTER 2023-10-15 09:04 | Outpatient (CLI) | payer OTHER ==
--- NOTE | 2023-10-15 09:35 | Sleep Patient Instructions ---
Sleep Center Visit Summary - Patient Visit Information Reason for Visit: 3-month follow-up - Patient Instructions Additional Instructions: You were here for follow up of CPAP therapy. You will be continued on CPAP therapy with pressure at 8-12 cmH2O. You should follow up with sleep care in 12 months. You may contact us sooner for any questions or concerns. - Clinic Information Contact: [facility] [address] [place] [address] [email or web address] T: [phone]
--- NOTE | 2023-10-15 09:38 | SLEEP CARE CONSULTATION ---
Information from patient questionnaire entered by Margarita Kaplan. I have reviewed and concur with the information entered by Margarita Kaplan. This document represents the service I personally performed and the decisions made by , Sruthi Brown ARNP. History of Present Illness Service Date and Time: 10/15/2023903 Previous diagnosis: Mild, Obstructive Sleep Apnea-Hypopnea Syndrome AHI: 9.1 (11-13-22) Reason for follow up: three month (F/U) Equipment type: CPAP (RESMED AIRSENSE 10 AUTO SET SETUP DATE 04/09/23) Equipment obtained from: Other ([facility]; getting supplies) Mask style: Nasal (over the nose) Backup mask available: Yes Last cushion change: 3 weeks Prior sleep studies: No Type of Sleep Study: Polysomnography (COMPLETED 11/13/22) HPI additional information: PRISCILLA FAULKNER was diagnosed to have mild, AHI 9.1, obstructive sleep apnea- hypopnea syndrome and returned today for CPAP therapy three month follow-up. Sleep Study - Results Type of Sleep Study: Polysomnography (COMPLETED 11/13/22) Prior sleep studies: No CPAP Compliance Data - Data Reviewed with Patient Average duration of nightly device use: 5 HRS 59 MINS Compliance rate %: 91 (07/13/23-10/10/23; 89-90 days used) Current pressure setting (cmH2O): 8-12 Average residual AHI: 0.2 Central apnea: 0 Obstructive apnea: 0 Hypopnea: 0.2 Average large leak: 3 L/min Subjective Missed days of use due to: reports: mask issues Patient concerns: reports: air blowing in eyes (mask cushion too big, trying to get right size). denies: aerophagia, mask discomfort, mask leak noise, condensation in mask/hose, nasal congestion, dry mouth, nose, throat, epistaxis Observed to snore while using device: No Current pressure setting perceived as: comfortable On therapy, patient: reports: sleeping better, awakening more refreshed, being more awake and alert during the day, more rested overall. denies: drowsiness while driving Initial [place] Sleepiness Scale score: 15 (10/09/22) Current [place] Sleepiness Scale score: 4 (10/15/23) Allergies and Home Medications Known drug allergies: Yes (as listed) Drug allergies reviewed: Yes Home medication list reviewed: Yes (no changes) Allergy and home medication list: Allergies NSAIDS (Non-Steroidal Anti-Inflamma Allergy (Verified 10/15/23 09:04) Anaphylaxis Review of Systems Review of systems same as previous: Yes (NO CHANGE) Physical Exam Vital signs obtained and entered by: MARGARITA Siddiqi MA Blood Pressure: 156/96 (RIGHT ARM) Cuff size: regular Heart Rate: 89 O2 Saturation: 95 Height: 5 ft 10.5 in Weight: 246 lb 6.4 oz Body Mass Index: 34.8 BMI Classification: Obese Impression and Plan 1. Obstructive Sleep Apnea-Hypopnea Syndrome, mild, with good treatment compliance and good apnea control. On CPAP therapy, the patient has better sleep quality and is more rested overall. He has significant improvement of his sleep apnea and is satisfied with current CPAP therapy. He needs to contact nationwide to change out the extra-large cushions for a smaller size that works better for him. He has been having difficulty with contacting them. I encouraged him to get back to us if he still cannot get a hold of them to get his replacements. He voiced understanding. Patient's apnea severity and rationale for treatment to reduce apnea, improve sleep quality and reduce cardiovascular and cerebrovascular events was reviewed. I also reviewed the benefit of consistent device use of CPAP for hypertension, attention deficit. 2. Obesity, unspecified. Currently patients BMI is 34.8. Obesity increases the risk of apnea, CPAP pressure requirements and overall health risks especially cardiovascular and diabetes. Thus patient is advised to lose weight. * Continue auto CPAP pressure at 8-12 cmH2O * Notify me if snoring with mask or feeling that the pressure is too much or too little * Attempt to lose weight * Call this office if any problems using CPAP * Return for follow up in 12 months, or sooner if concerns arise Continue with device pressure at (cmH2O): 8-12 Counseling Topics: Spare mask, Weight loss health impact Follow up with Sleep Care in: 1 year Visit Type: In Office Time Spent with Patient (minutes): 13 Provider Statement: I spent 100% of the Face to Face Visit with the patient with greater than 50% spent counseling the patient and coordination of care.
[2023-10-15 09:39] VITALS: BP 156/96; O2SAT 95
== END 2023-10-15 09:05 | disposition home or self-care (01) ==
LOC: SC 09:04
PROVIDERS: ATTEND Nurse Practitioner Family
DX: G47.33 Obstructive sleep apnea (adult) (pediatric) (principal); E66.9 Obesity, unspecified; Z68.34 Body mass index [BMI] 34.0-34.9, adult
CPT/HCPCS: 99212